=== PATIENT | male | born 1995 | race Caucasian/White ===

== ENCOUNTER → 2020-04-04 02:28 | Outpatient (CLI) | payer OTHER, MEDICAID, SELFPAY ==
[2020-04-04 03:56] LABS: COVID19 -Nasal RAPID Negative (Negative)
== END ==
PROVIDERS: Referring Provider Obstetrics & Gynecology; Visit Provider Obstetrics & Gynecology
DX: Z11.59 Encounter for screening for other viral diseases (principal)
CPT/HCPCS: 87635